=== PATIENT | female | born 1980 | race Caucasian/White ===

== ENCOUNTER 2018-02-22 12:13 | Emergency (ER) | payer MEDICAID, SELFPAY ==
[2018-02-22 12:14] VITALS: BP 191/112; PULSE 109; RESP 16; TEMP 36.9; O2SAT 97; BMI 24.2
[2018-02-22 12:20] VITALS: BP 191/112; PULSE 89; RESP 16; O2SAT 98
--- NOTE | 2018-02-22 12:33 | CT_ITS ---
STUDY: CT ABDOMEN AND PELVIS WITHOUT CONTRAST REASON FOR EXAM: Female, 37 years old. Right-sided flank pain, hematuria RADIATION DOSAGE (If Supplied By Facility): CTDIvol = ( 9.07 ) mGy, DLP = ( 406.32 ) mGycm TECHNIQUE: Transaxial images were obtained from the dome of the diaphragm to the symphysis pubis without oral contrast, and without intravenous contrast. Sagittal and coronal images were reconstructed. Individualized dose optimization techniques were used for this CT. COMPARISON: 10/14/2016 FINDINGS: The visualized lung bases are unremarkable. The visualized portions of the heart are within normal limits. Normal liver. There are surgical clips in the gallbladder fossa consistent with a prior cholecystectomy. Normal spleen. Normal pancreas. Normal bilateral adrenal glands. Normal right kidney. Normal left kidney. Normal visualized stomach. Normal small intestine. Retained stool noted in the colon. There is non-visualization of the appendix. Normal abdominal aorta. Normal inferior vena cava. Normal retroperitoneum. Normal urinary bladder. Normal abdominal wall. Normal osseous structures. CT/Abdomen/Pelvis without Cont IMPRESSION: No suspicious solid organ abnormality No CT evidence of an acute inflammatory process No free intraperitoneal fluid, air, or suspicious adenopathy Electronically Signed: Mu Sparrow MD at 13:22 EDT , Service support ,
[2018-02-22] MEDS: Ondansetron 4 MG/2 ML Vial IV (12:44)
[2018-02-22] MEDS: 0.9% Normal Saline 1,000 ML 1000 ML IV (12:44)
[2018-02-22] MEDS: HYDROmorphone 0.5 MG/0.5 ML SYRINGE IV ×2 (12:44→13:41)
[2018-02-22 12:52] LABS: Absolute Lymphocyte Count 3.86 X10^3/ul (0.83-4.51); Absolute Neutrophil Count 3.8 X10^3/uL (2.0-7.7); Basophil# 0.04 X10^3/uL; Basophil% 0.5 % (0-1); Eosinophil# 0.18 X10^3/uL; Eosinophils% 2.1 % (0-5); Hematocrit 42.9 % (37-47); Hemoglobin 14.9 g/dl (12.0-15.0); Lymphocyte # 3.86 X10^3/ul (4.0); Lymphocyte % 45.6 % (19-41); Mean Corp Hgb Conc 34.7 g/gl (32-36); Mean Corpuscular Hgb 30.6 pg (27.0-32.0); Mean Corpuscular Volume 88.1 fL (81-99); Mean Platelet Vol. 8.8 fl (6.2-12.0); Monocyte# 0.56 X10^3/uL; Monocyte% 6.6 % (0-10); Neutrophil # 3.81 X10^3/uL (2.7-7.7); Neutrophil % 45.1 % (47-70); POSITIVE COUNT NO; POSITIVE DIFFERENTIAL NO; POSITIVE MORPHOLOGY NO; Platelet Count 464 K/mm3 (150-450); RBC Distribution Width CV 12.7 % (11.6-14.6); RBC Distribution Width SD 40.8 fl (35.1-43.9); Red Blood Count 4.87 M/mm3 (4.2-5.4); White Blood Count 8.5 K/mm3 (4.4-11.0)
[2018-02-22 12:59] LABS: Bacteria 0 SEEN /hpf (None Seen); Mucous, Urine 0 SEEN /hpf (<or=2+); Red Blood Cells-Urine 0 SEEN /hpf (0-5); White Blood Cells 0 SEEN /hpf (0-5)
[2018-02-22 13:02] LABS: Color, Urine Yellow (Yellow); Glucose, Dipstick Normal (Normal); Ketone-Dipstick Negative (Negative); Leukocyte Esterase-Dipstick Negative /ul (Negative); Nitrite-Dipstick Negative (Negative); Occult Blood-Urine 10 /ul (Negative); Protein-Dipstick Negative (Negative); Urine Bilirubin Dipstick Negative (Negative); Urine Clarity Clear (Clear); Urine Urobilinogen Normal (Normal); Urine pH 6.5 (5.0 - 8.0)
[2018-02-22 13:02] LABS: Anion Gap 5 (5-15); BUN 11 mg/dL (7-18); BUN/Creat Ratio 11.4 RATIO (10-20); Calcium,Total 8.9 mg/dL (8.5-10.1); Chloride 103 mmol/L (98-107); Creatinine, Serum 0.97 mg/dL (0.55-1.02); EST Glomerular Filtration Rate 68 mL/min (>60); Est Glom Filt Rate - Afr Amer 82 mL/min (>60); Estimated Creatinine Clearance 72.89 ml/min; Glucose 90 mg/dL (74-106); Potassium 3.3 mmol/L (3.5-5.1); Sodium Level 139 mmol/L (136-145)
[2018-02-22 13:08] LABS: Squamous Epithelial Cells - UA 0-5 SEEN /hpf (5-10)
--- NOTE | 2018-02-22 13:10 | NURSING ---
RN REASSESSED PAIN AND PATIENT ASKING FOR MORE PAIN MEDICATION. PHYSICIAN MADE AWARE. PHYSICIAN AWAITING CT RESULTS PRIOR TO ORDERING MORE PAIN MEDICATION.
--- NOTE | 2018-02-22 13:32 | ED.DEP ---
ED Disposition - Plan for ED Patient: Chief Complaint: Flank Pain Instructions: ED Abdominal Pain Unkn Cause Referrals: Sharif Pérez MD [Primary Care Provider] -
--- NOTE | 2018-02-22 13:33 | ED.DCSUM_ITS ---
- ER Visit Summary Date of Service: 02/22/18 Chief Complaint: Abdominal pain History of Present Illness: The patient is a 37 F who presents with abdominal pain. She complains of 2 days of waxing and waning sharp right lower abdominal pain. She currently rates this as 6 out of 10. She reports nausea. She reports frequency and urgency. She complains of bladder spasms. She reports subjective fevers but has not checked temperature. She states she has recently passed grainy urine. She does have a history of medullary sponge kidney and kidney stones. Physical Examination: Heart rate 109 initial blood pressure 199/112 Moist mucous membranes No distress Heart regular rhythm slightly tachycardic Lungs are clear Abdomen soft with right lower quadrant tenderness no guarding no rebound no CVA tenderness Alert Test Results: CBC, BMP, urinalysis all unremarkable. CT of the abdomen and pelvis shows no acute findings. Emergency Department Course and Treatment: Patient was treated with Dilaudid fluids and Zofran here with improvement. She has no evidence of ureterolithiasis. Imaging does not provide a clear explanation for her pain. She was advised to follow-up with her primary care physician. She understands return for new or worsening symptoms. Treatment Plan: [] Disposition: Discharge Impression: Abdominal pain of uncertain etiology This note was generated with [employer] dictation software. It may contain incorrect words, spelling, and punctuation that were not noted in review of the chart prior to signing ED Disposition - Plan for ED Patient: Chief Complaint: Flank Pain Referrals: Sharif Pérez MD [Primary Care Provider] -
[2018-02-22 13:35] VITALS: BP 180/89; PULSE 77; RESP 15; O2SAT 97
== END 2018-02-22 13:49 | disposition home or self-care (01) ==
LOC: ED 13:13
PROVIDERS: Emergency Provider Emergency Medicine; Family Provider Family Medicine; PCP Family Medicine
DX: R10.31 Right lower quadrant pain (principal); R11.0 Nausea; R35.0 Frequency of micturition; R39.15 Urgency of urination; Q61.5 Medullary cystic kidney; I10 Essential (primary) hypertension; Z87.442 Personal history of urinary calculi; Z79.899 Other long term (current) drug therapy; Z72.0 Tobacco use
CPT/HCPCS: 74176; 80048; 81001; 85025; 96361; 96374; 96375; 99284; J7030; J2405

== ENCOUNTER 2019-04-08 17:28 | Emergency (ER) | payer MEDICAID, SELFPAY ==
[2019-04-08 17:29] VITALS: BP 155/108; PULSE 107; RESP 18; TEMP 36.1; O2SAT 99; BMI 23.3
--- NOTE | 2019-04-08 17:57 | CT_ITS ---
STUDY: CT ABDOMEN AND PELVIS WITHOUT CONTRAST REASON FOR EXAM: Female, 38 years old. Flank pain, history of kidney stones RADIATION DOSAGE (If Supplied By Facility): CTDIvol = ( 6.29 ) mGy, DLP = ( 292.47 ) mGycm TECHNIQUE: Transaxial images were obtained from the dome of the diaphragm to the symphysis pubis without oral contrast, and without intravenous contrast. Sagittal and coronal images were reconstructed. Individualized dose optimization techniques were used for this CT. COMPARISON: Previous study of 02/22/2018 FINDINGS: The visualized lung bases are unremarkable. The visualized portions of the heart are within normal limits. Normal liver. There is non-visualization of the gallbladder, which may be secondary to either contraction or a prior cholecystectomy. Normal spleen. Normal pancreas. Normal bilateral adrenal glands. Normal right kidney. Normal left kidney. Normal visualized stomach. Normal small intestine. Normal colon. There is non-visualization of the appendix. Normal abdominal aorta. Normal inferior vena cava. Normal retroperitoneum. Normal urinary bladder. There is a small umbilical hernia containing fat. There is mild narrowing with vacuum phenomenon of the L3-[address]/Abdomen/Pelvis without Cont IMPRESSION: 1. Nonvisualization of the gallbladder and appendix. 2. Small fat-containing umbilical hernia. 3. There is no evidence of nephro or ureterolithiasis, hydronephrosis, or hydroureter. Electronically Signed: Jae Milan MD at 19:16 EDT , Service support ,
[2019-04-08 18:20] LABS: Absolute Lymphocyte Count 2.65 X10^3/uL (0.83-4.51); Absolute Neutrophil Count 4.7 X10^3/uL (2.0-7.7); Basophil# 0.06 X10^3/uL; Basophil% 0.7 % (0-1); Eosinophil# 0.21 X10^3/uL; Eosinophils% 2.6 % (0-5); Hematocrit 40.8 % (37-47); Hemoglobin 14.1 g/dL (12.0-15.0); Lymphocyte # 2.65 X10^3/ul (4.0); Lymphocyte % 32.3 % (19-41); Mean Corp Hgb Conc 34.6 g/dL (32-36); Mean Corpuscular Hgb 30.5 pg (27.0-32.0); Mean Corpuscular Volume 88.1 fL (81-99); Mean Platelet Vol. 9.7 fl (6.2-12.0); Monocyte# 0.61 X10^3/uL; Monocyte% 7.4 % (0-10); NRBC Flagged by Analyzer 0 % (0-5); Neutrophil # 4.65 X10^3/uL (2.7-7.7); Neutrophil % 56.6 % (47-70); Platelet Count 450 K/mm3 (150-450); RBC Distribution Width CV 12.9 % (11.6-14.6); RBC Distribution Width SD 41.5 fl (35.1-43.9); Red Blood Count 4.63 M/mm3 (4.2-5.4); White Blood Count 8.2 K/mm3 (4.4-11.0)
[2019-04-08] MEDS: HYDROmorphone 1 MG/ML Syringe IV (18:36)
[2019-04-08] MEDS: Ondansetron 4 MG/2 ML Vial IV (18:36)
[2019-04-08] MEDS: 0.9% Normal Saline 1,000 ML 250 ML IV (18:37)
[2019-04-08 19:13] LABS: Anion Gap 5 (5-15); BUN 16 mg/dL (7-18); BUN/Creat Ratio 22.3 RATIO (10-20); Calcium,Total 8.3 mg/dL (8.5-10.1); Chloride 113 mmol/L (98-107); Creatinine, Serum 0.72 mg/dL (0.55-1.02); EST Glomerular Filtration Rate 95 mL/min (>60); Est Glom Filt Rate - Afr Amer 115 mL/min (>60); Estimated Creatinine Clearance 97.23 ml/min; Glucose 100 mg/dL (74-106); Potassium 3.6 mmol/L (3.5-5.1); Sodium Level 145 mmol/L (136-145)
[2019-04-08 19:43] LABS: Mucous, Urine 0 SEEN /hpf (<or=2+); Red Blood Cells-Urine 0 SEEN /hpf (0-5); White Blood Cells 0 SEEN /hpf (0-5)
[2019-04-08 19:45] VITALS: BP 131/91; PULSE 71; RESP 16; O2SAT 100
--- NOTE | 2019-04-08 19:45 | ED.RN ---
pt requesting additional pain medicine, dr. adan informed. no new orders at this time.
[2019-04-08 19:54] LABS: Color, Urine Yellow (Yellow); Glucose, Dipstick Normal (Normal); Ketone-Dipstick Negative (Negative); Leukocyte Esterase-Dipstick Negative /ul (Negative); Nitrite-Dipstick Negative (Negative); Occult Blood-Urine 10 /ul (Negative); Protein-Dipstick Negative (Negative); Specific Gravity, Urine 1.005 (1.002-1.030); Urine Bilirubin Dipstick Negative (Negative); Urine Clarity Clear (Clear); Urine Urobilinogen Normal (Normal)
[2019-04-08 20:16] LABS: Bacteria 1+ /hpf (None Seen); Squamous Epithelial Cells - UA 0-5 SEEN /hpf (5-10)
--- NOTE | 2019-04-08 20:31 | ED.DCSUM_ITS ---
- ER Visit Summary Date of Service: 04/08/19 Chief Complaint: Right flank pain History of Present Illness: The patient is a [address] cortez. She has a urologist in [facility] [place]. She reports that she has a history of medullary sponge kidney has had multiple kidney stones. She reports that approximately 2 years ago she had her right kidney denervated to decrease right flank pain. Patient reports approximately 430 this morning she had the abrupt onset of a sharp, stabbing pain in the right flank that radiates into the right lower quadrant. It was 8 out of 10 at worst and 6 out of 10 currently. Is worsened by movement or urinating. Is relieved by remaining still. She is had nausea without vomiting. No diarrhea. Her last bowel was today. No melena hematochezia. She had frequent urination, but no dysuria or hematuria. Physical Examination: Vitals: Stable. Afebrile. General: Well-nourished and well-developed. Head: Normocephalic atraumatic. Neck: Supple, no lymphadenopathy. No JVD. Nontender. Cardiovascular: Regular rate and rhythm. No murmurs. Respiratory: No respiratory distress. Clear to auscultation bilaterally. Abdominal: Soft, mild right lower quadrant tenderness to palpation, nondistended, normal bowel sounds. No guarding, rebound, or peritoneal signs. Back: Nontender. Extremities: Nontender, no edema. Skin: Normal color, no rash. Neurologic: Alert and oriented ?3. Cranial nerves II through XII are intact. Normal strength and sensation. Psych: Normal affect. Test Results: CBC is normal. Chem-7 shows a chloride of 113 and calcium 8.3. UA shows no evidence of infection. Clinical Impression(s) from Imaging Studies Abdomen/Pelvis CT 04/08/19 17:57 IMPRESSION: 1. Nonvisualization of the gallbladder and appendix. 2. Small fat-containing umbilical hernia. 3. There is no evidence of nephro or ureterolithiasis, hydronephrosis, or hydroureter. Electronically Signed: Jae Milan MD at 19:16 EDT , Service support , Emergency Department Course and Treatment: Patient was given a dose of Dilaudid IV as she has a morphine allergy and reports she cannot have Toradol due to her medullary sponge kidney. She continued to complain of pain was given a dose of Percocet p.o. Treatment Plan: Patient reports that her primary care physician has written for a prescription for Percocet for her. I discussed her that at this time it does not appear that she has a kidney stone. However, I do not have a answer for her flank pain. She is instructed to follow-up with primary care physician in 1 to 2 days if not improving. Follow-up with her urologist as soon as possible. Return to the emergency department for any worsening symptoms. Disposition: To home in improved and stable condition. Impression: 1. Right flank pain, uncertain cause. This note was generated with [employer] dictation software. It may contain incorrect words, spelling, and punctuation that were not noted in review of the chart prior to signing ED Disposition - Plan for ED Patient: Disposition: Home or Assisted Living Instructions: FLANK PAIN, Uncertain Cause Referrals: Sharif Pérez MD [Primary Care Provider] - 1-2 Days if not improving
[2019-04-08] MEDS: oxyCODONE 5 MG Tablet 10 MG PO (20:49)
[2019-04-08 20:53] VITALS: BP 145/105; PULSE 71; RESP 17; O2SAT 98
== END 2019-04-08 20:55 | disposition home or self-care (01) ==
LOC: ED 18:01
PROVIDERS: Emergency Provider Emergency Medicine; Family Provider Family Medicine; PCP Family Medicine
DX: R10.31 Right lower quadrant pain (principal); R11.0 Nausea; R35.0 Frequency of micturition; K42.9 Umbilical hernia without obstruction or gangrene; Q61.5 Medullary cystic kidney; J45.909 Unspecified asthma, uncomplicated; I10 Essential (primary) hypertension; Z87.442 Personal history of urinary calculi; Z90.49 Acquired absence of other specified parts of digestive tract; Z79.899 Other long term (current) drug therapy
CPT/HCPCS: 74176; 80048; 81001; 85025; 96361; 96374; 96375; 99284; J7030; A4216; J2405

== ENCOUNTER 2021-07-30 10:46 | Emergency (ER) | payer MEDICAID, SELFPAY ==
[2021-07-30 10:47] VITALS: BP 173/118; PULSE 97; RESP 16; TEMP 36.8; O2SAT 98; BMI 21.7
[2021-07-30 12:50] LABS: Mucous, Urine 0 SEEN /hpf (<or=2+); Red Blood Cells-Urine 0 SEEN /hpf (0-5); White Blood Cells 0 SEEN /hpf (0-5)
[2021-07-30 13:06] LABS: Color, Urine Straw (Yellow); Glucose, Dipstick Normal (Normal); Ketone-Dipstick Negative (Negative); Leukocyte Esterase-Dipstick Negative /ul (Negative); Nitrite-Dipstick Negative (Negative); Occult Blood-Urine 10 /ul (Negative); Protein-Dipstick Negative (Negative); Urine Bilirubin Dipstick Negative (Negative); Urine Clarity Clear (Clear); Urine Urobilinogen Normal (Normal); Urine pH 6.5 (5.0 - 8.0)
[2021-07-30 13:19] LABS: Bacteria 1+ /hpf (None Seen); Squamous Epithelial Cells - UA 0-5 SEEN /hpf (5-10)
--- NOTE | 2021-07-30 13:40 | CT_ITS ---
STUDY: CT ABDOMEN AND PELVIS WITHOUT CONTRAST REASON FOR EXAM: Female, 40 years old. Kidney Stone RADIATION DOSAGE (If Supplied By Facility): CTDIvol = ( 6.08 ) mGy, DLP = ( 284.26 ) mGycm TECHNIQUE: Transaxial images were obtained from the dome of the diaphragm to the symphysis pubis without oral contrast, and without intravenous contrast. Sagittal and coronal images were reconstructed. Individualized dose optimization techniques were used for this CT. COMPARISON: None. FINDINGS: The visualized lung bases are unremarkable. The visualized portions of the heart are within normal limits. Normal liver. There is non-visualization of the gallbladder, which may be secondary to either contraction or a prior cholecystectomy. Normal spleen. Normal pancreas. Normal bilateral adrenal glands. Normal right kidney. Normal left kidney. Normal visualized stomach. Normal in caliber small bowel loops. Fecal retention. No evidence of acute diverticulitis. There is non-visualization of the appendix. Normal abdominal aorta. Normal inferior vena cava. Normal retroperitoneum. Normal urinary bladder. There is absence of the uterus consistent with a prior hysterectomy. Normal abdominal wall. Narrowing of L3-L4 disc space with degenerative changes of the adjacent endplates and posterior degenerative spur on the right side. CT/Abdomen/Pelvis without Cont IMPRESSION: 1. No focal acute inflammatory process. 2. Fecal retention. Electronically Signed: Eric Woods, at 14:24 EST Tel , Service support ,
[2021-07-30] MEDS: Ondansetron 4 MG/2 ML Vial IV (13:58)
[2021-07-30] MEDS: HYDROmorphone 1 MG/ML Syringe IV ×2 (13:58→15:46)
[2021-07-30 14:00] LABS: Absolute Lymphocyte Count 1.86 X10^3/uL (0.83-4.51); Absolute Neutrophil Count 4.8 X10^3/uL (2.0-7.7); Basophil# 0.04 X10^3/uL; Basophil% 0.5 % (0-1); Hematocrit 41.5 % (37-47); Hemoglobin 14.3 g/dL (12.0-15.0); Lymphocyte # 1.86 X10^3/ul (0.83-4.51); Lymphocyte % 25.5 % (19-41); Mean Corp Hgb Conc 34.5 g/dL (32-36); Mean Corpuscular Hgb 30.2 pg (27.0-32.0); Mean Corpuscular Volume 87.7 fL (81-99); Mean Platelet Vol. 8.7 fl (6.2-12.0); Monocyte% 8.2 % (0-10); NRBC Flagged by Analyzer 0 % (0-5); Neutrophil # 4.77 X10^3/uL (2.7-7.7); Neutrophil % 65.4 % (47-70); Platelet Count 400 K/mm3 (150-450); RBC Distribution Width CV 13.8 % (11.6-14.6); RBC Distribution Width SD 44.6 fl (35.1-43.9); Red Blood Count 4.73 M/mm3 (4.2-5.4); White Blood Count 7.3 K/mm3 (4.4-11.0)
[2021-07-30 14:13] LABS: Anion Gap 4 (5-15); BUN 13 mg/dL (7-18); BUN/Creat Ratio 19.1 RATIO (10-20); Calcium,Total 9.2 mg/dL (8.5-10.1); Chloride 112 mmol/L (98-107); Creatinine, Serum 0.68 mg/dL (0.55-1.02); EST Glomerular Filtration Rate 100 mL/min (>60); Est Glom Filt Rate - Afr Amer 121 mL/min (>60); Estimated Creatinine Clearance 100.89 ml/min; Glucose 86 mg/dL (74-106); Potassium 3.4 mmol/L (3.5-5.1); Sodium Level 143 mmol/L (136-145)
[2021-07-30 16:02] VITALS: BP 151/115; PULSE 83; RESP 16; O2SAT 100
[2021-07-30 17:09] VITALS: BP 124/77; PULSE 62; RESP 15; O2SAT 97
--- NOTE | 2021-07-30 18:59 | EDS_ITS ---
HPI HPI - Female History of Present Illness Chief Complaint: Complaint Narrative Narrative: 40-year-old female presenting with hematuria. She states he was diagnosed with COVID-19 on the . She also states that she has a history of kidney stones and is now developing some right-sided flank pain. She has some mild nausea. She denies fever or chills currently. She does not have any shortness of breath or chest pain. Patient denies any vaginal bleeding. Patient has no concern for . PFSH [facility] Medical History Asthma HTN (hypertension) Home Medications albuterol sulfate [Ventolin Hfa (SP)] 2 puff INHALATION Q4H PRN PRN 01/25/17 [History Last Taken Unknown] cholecalciferol (vitamin D3) [Vitamin D3] 2,000 unit PO DAILY 01/25/17 [History Last Taken Unknown] estrogens-methyltestosterone [Estratest H.s. Tablet] 1 tab PO DAILY 01/25/17 [History Last Taken Unknown] sumatriptan succinate 50 mg PO .X1 PRN 01/25/17 [History Last Taken Unknown] epinephrine 0.3 mg IJ 04/08/19 [History Last Taken Unknown] irbesartan 150 mg PO DAILY 04/08/19 [History Last Taken Unknown] mometasone-formoterol 13 gm IH DAILY 04/08/19 [History Last Taken Unknown] oxycodone-acetaminophen 1 tab PO Q4H PRN PRN 04/08/19 [History Last Taken Unknown] tramadol 100 mg PO Q6H PRN PRN 04/08/19 [History Last Taken Unknown] metoprolol succinate 100 mg PO DAILY 07/30/21 [History Last Taken Unknown] omeprazole 40 mg PO DAILY 07/30/21 [History Last Taken Unknown] ondansetron 8 mg PO PRN PRN 07/30/21 [History Last Taken Unknown] pantoprazole 40 mg PO DAILY 07/30/21 [History Last Taken Unknown] tramadol 50 - 100 mg PO PRN PRN 07/30/21 [History Last Taken Unknown] Allergy/AdvReac Type Severity Reaction Status Date / Time bee venom protein (honey bee) Allergy Anaphylaxis Verified 04/08/19 17:28 Calcium Channel Blocking Allergy Anaphylaxis Verified 04/08/19 17:28 Agent Dilt celecoxib [From Celebrex] Allergy Hives Verified 04/08/19 17:28 hydrocodone Allergy Swelling Verified 04/08/19 17:28 iodine Allergy Anaphylaxis Verified 04/08/19 17:28 morphine Allergy Hives Verified 04/08/19 17:28 Penicillins Allergy Hives Verified 04/08/19 17:28 ketorolac [From Toradol] AdvReac Other Verified 04/08/19 17:28 latex AdvReac Swelling Verified 04/08/19 17:28 milk AdvReac Upset Verified 04/08/19 17:28 Stomach Surgical History History of appendectomy History of cholecystectomy History of total abdominal hysterectomy and bilateral salpingo-oophorectomy Social History Smoking Status: Former smoker ROS ROS ED Constitutional Constitutional ED: Denies chills or fever(s) Eyes Eyes: Denies blurry vision or diplopia ENT ENT ED: Reports rhinorrhea; Denies sore throat Cardiovascular Cardiovascular: Denies chest pain or palpitations Respiratory/Chest Respiratory/Chest: Reports cough; Denies dyspnea Gastrointestinal Gastrointestinal: Reports abdominal pain and nausea; Denies constipation, diarrhea or vomiting Genitourinary Genitourinary ED: Reports hematuria; Denies dysuria Musculoskeletal Musculoskeletal: Denies arthralgias or myalgias Integumentary Denies rash Neurologic Neurologic: Denies headache(s) or weakness EXAM Physical Exam Const Vital Signs: 07/30/21 10:47 07/30/21 16:02 07/30/21 17:09 Temperature 98.3 F Temperature Source Temporal Pulse Rate 97 83 62 Respiratory Rate 16 16 15 Blood Pressure 173/118 H 151/115 H 124/77 H Blood Pressure Mean 136 127 Pulse Ox 98 100 97 Oxygen Delivery Method Room Air Room Air Positive well nourished General Appearance ED: NAD HEENT Reports moist mucous membranes Negative for trauma Eyes PERRL and EOMs intact bilaterally Neck no lymphadenopathy and supple Resp normal respiratory effort and clear to auscultation bilaterally Cardio regular rate and regular rhythm GI normal to inspection, nondistended, normoactive bowel sounds Back/Spine General Back: CVA tenderness right Neuro oriented x3 and CN's II-XII intact bilaterally Sensorium / Orientation: alert Psych mental status grossly normal Skin General Skin Exam: Negative for jaundice MDM MDM MDM Narrative Medical decision making narrative: Patient has concern for kidney stone. I did obtain basic lab work and the patient's CBC is normal. Is not leukopenic or lymphopenic. Her renal function and electrodes normal with exception of a potassium of 3.4. Urinalysis positive for 10 of occult blood. I did obtain a CT of the abdomen pelvis without contrast which does not show any acute inflammatory process. No renal or ureteral calculi are visualized. She does have fecal retention. This is reported to the patient and she states that she has had bowel movements it does not feel like she is constipated. She states that she can take MiraLAX for the next 3 days to see if this improves the pain. I guess it is possible that she also passed a small kidney stone but with normal lab work and imaging and no sign of inflammation or infection I think she is stable for discharge home. She is amenable to this plan. She will be discharged and continue to quarantine for COVID-19. Impression: 1. History of COVID-19 2. Right flank pain 3. Fecal retention 4. Hematuria Lab Data Labs: Laboratory Results - last 24 hr 07/30/21 07/30/21 07/30/21 12:45 13:55 13:55 WBC 7.3 RBC 4.73 Hgb 14.3 Hct 41.5 MCV 87.7 MCH 30.2 MCHC 34.5 RDW Std Deviation 44.6 H RDW Coeff of Slava 13.8 Plt Count 400 MPV 8.7 Immature Gran % (Auto) 0.400 Neut % (Auto) 65.4 Lymph % (Auto) 25.5 [place] % (Auto) 8.2 Eos % (Auto) 0.0 Baso % (Auto) 0.5 Absolute Neuts (auto) 4.8 Absolute Lymphs (auto) 1.86 Nucleated RBC % 0 Sodium 143 Potassium 3.4 L Chloride 112 H Carbon Dioxide 27.0 Anion Gap 4 L BUN 13 Creatinine 0.68 Estim Creat Clear Calc 100.89 Est GFR (MDRD) Af Amer 121 Est GFR (MDRD) Non-Af 100 BUN/Creatinine Ratio 19.1 Glucose 86 Calcium 9.2 Urine Color Straw Urine Clarity Clear Urine pH 6.5 Ur Specific Flushing 1.010 Urine Protein Negative Urine Glucose (UA) Normal Urine Ketones Negative Urine Occult Blood 10 H Urine Nitrite Negative Urine Bilirubin Negative Urine Urobilinogen Normal Ur Leukocyte Esterase Negative Urine RBC 0 SEEN Urine WBC 0 SEEN Ur Squamous Epith Cells 0-5 SEEN Urine Bacteria 1+ Urine Mucus 0 SEEN Radiography Diagnostic Testing: Clinical Impression(s) from Imaging Studies Abdomen/Pelvis CT 07/30/21 13:40 IMPRESSION: 1. No focal acute inflammatory process. 2. Fecal retention. Electronically Signed: Eric Woods, at 14:24 EST Tel , Service support , Discharge Plan Triage Chief Complaint: Complaint ED Provider: Xavi Lees Dx/Rx/DC Orders Instructions: ED Abdominal Pain Unkn Cause Fem, ED Constipation (Adult), ED Hematuria Prescriptions: No Action estrogens-methyltestosterone [Covaryx H.S.] 1 TAB tablet 1 tab PO DAILY RF: 0 sumatriptan succinate 50 MG tablet 50 mg PO .X1 PRN RF: 0 albuterol sulfate [Ventolin HFA] 1 INHALER inhaler 2 puff inhalation Q4H PRN PRN (Reason: COUGH/WHEEZE) RF: 0 cholecalciferol (vitamin D3) [Vitamin D3] 2,000 UNIT capsule 2,000 unit PO DAILY RF: 0 tramadol 50 MG tablet 100 mg PO Q6H PRN PRN (Reason: Pain) RF: 0 oxycodone-acetaminophen 1 TABLET tablet 1 tab PO Q4H PRN PRN (Reason: Pain) RF: 0 irbesartan 150 MG tablet 150 mg PO DAILY RF: 0 epinephrine 0.3 MG/0.3 ML auto-injector 0.3 mg IJ RF: 0 mometasone-formoterol 13 GM HFA aerosol inhaler 13 gm IH DAILY RF: 0 metoprolol succinate 100 mg tablet extended release 24 hr 100 mg PO DAILY RF: 0 omeprazole 40 mg capsule,delayed release(DR/EC) 40 mg PO DAILY RF: 0 tramadol 50 mg tablet 50 - 100 mg PO PRN PRN (Reason: Pain) RF: 0 ondansetron 8 mg tablet,disintegrating 8 mg PO PRN PRN (Reason: Nausea) RF: 0 pantoprazole 40 mg Tablet,Delayed Release (Dr/Ec) 40 mg PO DAILY RF: 0 Primary Care Provider: Sharif Pérez Referrals: Flaca Valle MD [STAFF PHYSICIAN] - As Needed Sharif Pérez MD [Primary Care Provider] - Disposition Disposition: Home, Self Care Discharge Date/Time: 07/30/21 17:10
== END 2021-07-30 17:10 | disposition home or self-care (01) ==
PROVIDERS: Emergency Provider Student in an Organized Health Care Education/Training Program; PCP Family Medicine
DX: R31.9 Hematuria, unspecified (principal); R10.9 Unspecified abdominal pain; K59.00 Constipation, unspecified; Z86.16 Personal history of COVID-19; Z87.891 Personal history of nicotine dependence; I10 Essential (primary) hypertension; J45.909 Unspecified asthma, uncomplicated; Z79.51 Long term (current) use of inhaled steroids; Z79.899 Other long term (current) drug therapy; Z87.442 Personal history of urinary calculi
CPT/HCPCS: 74176; 80048; 81001; 85025; 96374; 96375; 96376; 99283; A4216; J2405